=== PATIENT | female | born 1965 | race Caucasian/White ===

== ENCOUNTER 2022-09-01 06:23 | Emergency (ER) | payer OTHER ==
[~2022-09-01] VITALS: Ht 165.1 cm; Wt 103.4 kg
[2022-09-01 07:01] VITALS: BP 148/93
--- NOTE | 2022-09-01 07:45 | NUR ---
BIB SELF C/O LEFT THIGH PAIN, REDNESS& SWLLING X 1 WEEK.
--- NOTE | 2022-09-01 08:20 | NUR ---
PT AMB TO BED 9.
[2022-09-01] MEDS ORDERED: CLIN300C2 PO (08:32)
[2022-09-01 08:42] VITALS: BP 137/75
--- NOTE | 2022-09-01 08:43 | NUR ---
Patient discharged with v/s stable. Written and verbal after care instructions given and explained. Patient alert, oriented and verbalized understanding of instructions. Ambulatory with steady gait. All questions addressed prior to discharge. ID band removed. Patient advised to follow up with PMD. Rx of CLINDAMYCIN given. Patient educated on indication of medication including possible reaction and side effects. Opportunity to ask questions provided and answered.
== END 2022-09-01 08:42 | disposition home or self-care (01) ==
LOC: MED 06:23
DX: L02.416 Cutaneous abscess of left lower limb (principal); Z79.899 Other long term (current) drug therapy
CPT/HCPCS: 99283